=== PATIENT | male | born 1980 | race Caucasian/White ===

== ENCOUNTER 2017-06-13 15:30 | Emergency (ER) | payer BC, OTHER ==
[~2017-06-13] VITALS: Ht 177.8 cm; Wt 106.5 kg
[2017-06-13 15:32] VITALS: TEMP 36.7; Ht 177.8 cm; Wt 106.5 kg
[2017-06-13 16:16] LABS: BASO % 0.3 %; BASO ABS # 0.02 K/uL (0-0.2); EOS % 0.9 %; EOS ABS # 0.07 K/uL (0-0.5); HEMATOCRIT 40.6 % (42-52); HEMOGLOBIN 14.5 g/dL (14.0-18.0); IG# 0.03 K/uL (0.00-0.02); LYMPH % 18.6 %; LYMPH ABS # 1.45 K/uL (1.2-3.4); MEAN CORPUSCULAR HEMOGLOBIN 31.8 pg (25-34); MEAN CORPUSCULAR HGB CONC 35.7 g/dl (32-36); MEAN PLATELET VOLUME 9.7 fL (7.4-10.4); MONO % 10.3 %; NEUT % 69.5 %; NEUT ABS # 5.42 K/uL (1.4-6.5); PLATELET COUNT 167 K/uL (130-400); RED CELL DISTRIBUTION WIDTH CV 13.2 % (11.5-14.5); RED CELL DISTRIBUTION WIDTH SD 43.1 fL (36.4-46.3); WHITE BLOOD COUNT 7.79 K/uL (4.8-10.8)
[2017-06-13 16:20] VITALS: O2SAT 99
[2017-06-13 16:24] LABS: INR 1.1 (0.9-1.1); PTT PATIENT 28.9 SECONDS (21.0-31.0)
[2017-06-13 16:36] LABS: ALBUMIN 3.6 gm/dl (3.4-5.0); CALCIUM 8.3 mg/dl (8.5-10.1); CREATININE 0.9 mg/dl (0.60-1.40); POTASSIUM 3.8 mmol/L (3.5-5.1)
[2017-06-13 16:38] LABS: TOTAL PROTEIN 7.4 gm/dl (6.4-8.2)
[2017-06-13 16:43] LABS: INFLUENZA A PCR Neg for Influ A (NEG); INFLUENZA B PCR Neg for Influ B (NEG)
--- NOTE | 2017-06-13 16:48 | DIAGNOSTIC IMAGING REPORT ---
TWO VIEW CHEST CLINICAL HISTORY: Fever. FINDINGS: PA and lateral chest radiographs are obtained. No prior studies are available for comparison at the time of dictation. The cardiomediastinal silhouette is unremarkable. The lungs and pleural spaces are clear. There is no pneumothorax. The bony thorax appears intact. IMPRESSION: No active disease in the chest. Electronically signed by: Jass Pardo M.D. 06/13/2017 4:46 PM Dictated Date/Time: 06/13/2017 4:46 PM
[2017-06-13] MEDS ORDERED: CLINDAMYCIN 600 MG/54 ML D5W IV STA (17:11)
[2017-06-13] MEDS ORDERED: CLIN150C PO (17:22)
[2017-06-13] MEDS ORDERED: CLINDAMYCIN 150MG HOME PACK PO ONE (17:30)
[2017-06-13] MEDS ORDERED: CLINDAMYCIN IV 600 MG in DEXTROSE 5% 50ML 50 ML IV ONE (17:45)
--- NOTE | 2017-06-13 18:01 | EMERGENCY ROOM VISIT NOTE ---
History Report prepared by Samantha: Tate Georges Under the Supervision of: Dr. Jermaine Duran M.D. First contact with patient: 15:36 Chief Complaint: RASH Stated Complaint: FEVER AND RASH History of Present Illness The patient is a 37 year old male who presents to the Emergency Room with complaints of a constant rash that began this morning. He rates his discomfort as a 1/10 in severity. The patient states that beginning two days ago he became lightheaded and dizzy. He reports he tried to go to work, but developed the chills resulting in him going home. The patient states that when he went home he became febrile. He reports he took Ibuprofen and slept, which helped alleviate his symptoms. The patient states that night and the next day he continued to use Ibuprofen. He reports that this morning he woke up with a red rash to his right lower extremity. The patient states that the area is tender to touch. He states that he has also been experiencing some mild lower back soreness the other day which is now resolved. The patient states he took 600 mg of Ibuprofen again three hours ago. The patient denies congestion, urinary symptoms, vomiting, headache, injury to right lower extremity, a burning sensation to right leg, abdominal pain, neck pain, a history of Diabetes, and IV drug usage. Source of History: patient Onset: this morning Position: leg (right) Symptom Intensity: 1/10 Quality: other (red, tender to touch) Timing: constant Modifying Factors (Relieving): ibuprofen Associated Symptoms: + fevers, + chills, No headache, No neck pain, No vomiting, No abdominal pain, No urinary symptoms Note: Associated symptoms: dizzy, lightheaded Review of Systems See HPI for pertinent positives & negatives. A total of 10 systems reviewed and were otherwise negative. Past Medical & Surgical Medical Problems: (1) No significant past medical history Family History Diabetes mellitus Social History Smoking Status: Current Every Day Smoker Alcohol Use: occasionally Drug Use: none Marital Status: Housing Status: lives with family Occupation Status: employed Current/Historical Medications Scheduled Clindamycin Hcl (Cleocin), 300 MG PO TID Allergies Coded Allergies: Penicillins (Verified Allergy, Unknown, HAPPENED A CHILD-HIVES, 06/13/17 ) Physical Exam Vital Signs Date Time Temp Pulse Resp B/P (MAP) Pulse Ox O2 Delivery O2 Flow Rate FiO2 06/13/17 16:20 99 Room Air 06/13/17 16:20 89 20 143/76 98 Room Air 06/13/17 15:32 36.7 101 16 147/89 100 Room Air Physical Exam Constitutional: Vital signs reviewed. Eyes: Pupils are equal round reactive to light. Conjunctiva are noninjected. ENT: Pharynx is clear without erythema or exudate. Mucous membranes are moist. Neck supple without meningeal signs. Respiratory: Clear to auscultation bilaterally. Breath sounds are equal bilaterally. Cardiovascular: Regular rate and rhythm. No rubs or gallops. GI: Soft, nondistended and nontender. Bowel sounds are present. Musculoskeletal: No peripheral edema. Erythematous rash over the lateral aspect of the lower right taylor with scattered petechiae. No purpura. No midline tenderness to the thoracic or lumbar spine. Right inguinal lymphadenopathy with half-dollar sized erythematous lesion in the right inner thigh with mild tenderness. No petechiae over this lesion. Integumentary: No cyanosis. As above. Neurological: The patient is awake and alert. No focal deficits. Psychiatric: Normal affect. Medical Decision & Procedures ER Provider Diagnostic Interpretation: Radiology results as stated below per my review and the radiologist's interpretation: TWO VIEW CHEST CLINICAL HISTORY: Fever. FINDINGS: PA and lateral chest radiographs are obtained. No prior studies are available for comparison at the time of dictation. The cardiomediastinal silhouette is unremarkable. The lungs and pleural spaces are clear. There is no pneumothorax. The bony thorax appears intact. IMPRESSION: No active disease in the chest. Electronically signed by: Jass Pardo M.D. 06/13/2017 4:46 PM Dictated Date/Time: 06/13/2017 4:46 PM Laboratory Results 06/13/17 16:05 Red Blood Count 4.56, Mean Corpuscular Volume 89.0, Mean Corpuscular Hemoglobin 31.8, Mean Corpuscular Hemoglobin Concent 35.7, Mean Platelet Volume 9.7, Neutrophils (%) (Auto) 69.5, Lymphocytes (%) (Auto) 18.6, Monocytes (%) (Auto) 10.3, Eosinophils (%) (Auto) 0.9, Basophils (%) (Auto) 0.3, Neutrophils # (Auto ) 5.42, Lymphocytes # (Auto) 1.45, Monocytes # (Auto) 0.80, Eosinophils # (Auto ) 0.07, Basophils # (Auto) 0.02 06/13/17 16:05 Test 06/13/17 15:55 06/13/17 16:05 06/13/17 16:08 Influenza Type A (RT-PCR) Neg for Influ A (NEG) Influenza Type B (RT-PCR) Neg for Influ B (NEG) White Blood Count 7.79 K/uL (4.8-10.8) Red Blood Count 4.56 M/uL (4.7-6.1) Hemoglobin 14.5 g/dL (14.0-18.0) Hematocrit 40.6 % (42-52) Mean Corpuscular Volume 89.0 fL (80-100) Mean Corpuscular Hemoglobin 31.8 pg (25-34) Mean Corpuscular Hemoglobin Concent 35.7 g/dl (32-36) Platelet Count 167 K/uL (130-400) Mean Platelet Volume 9.7 fL (7.4-10.4) Neutrophils (%) (Auto) 69.5 % Lymphocytes (%) (Auto) 18.6 % Monocytes (%) (Auto) 10.3 % Eosinophils (%) (Auto) 0.9 % Basophils (%) (Auto) 0.3 % Neutrophils # (Auto) 5.42 K/uL (1.4-6.5) Lymphocytes # (Auto) 1.45 K/uL (1.2-3.4) Monocytes # (Auto) 0.80 K/uL (0.11-0.59) Eosinophils # (Auto) 0.07 K/uL (0-0.5) Basophils # (Auto) 0.02 K/uL (0-0.2) RDW Standard Deviation 43.1 fL (36.4-46.3) RDW Coefficient of Variation 13.2 % (11.5-14.5) Immature Granulocyte % (Auto) 0.4 % Immature Granulocyte # (Auto) 0.03 K/uL (0.00-0.02) Prothrombin Time 12.0 SECONDS (9.0-12.0) Prothromb Time International Ratio 1.1 (0.9-1.1) Activated Partial Thromboplast Time 28.9 SECONDS (21.0-31.0) Partial Thromboplastin Ratio 1.1 Anion Gap 6.0 mmol/L (3-11) Est Creatinine Clear Calc Drug Dose 140.0 ml/min Estimated GFR () 127.8 Estimated GFR (Non- 110.3 BUN/Creatinine Ratio 13.0 (10-20) Calcium Level 8.3 mg/dl (8.5-10.1) Total Bilirubin 0.5 mg/dl (0.2-1) Aspartate Amino Transf (AST/SGOT) 14 U/L (15-37) Alanine Aminotransferase (ALT/SGPT) 45 U/L (12-78) Alkaline Phosphatase 48 U/L (45-117) Total Protein 7.4 gm/dl (6.4-8.2) Albumin 3.6 gm/dl (3.4-5.0) Globulin 3.7 gm/dl (2.5-4.0) Albumin/Globulin Ratio 1.0 (0.9-2) Lyme Disease IgG Antibody NEG (NEG) Lyme Disease IgM Antibody NEG (NEG) Monoscreen NEG (NEG) Bedside Lactic Acid Venous 1.05 mmol/L (0.90-1.70) Date/Time Source Procedure Growth Status 06/13/17 15:55 Nasal MRSA DNA Surveillance Screen - Final Specimen Negative for MRSA by DNA Probe Complete Laboratory results as reviewed by me. Medications Administered Medications (Trade) Dose Ordered Sig/Ness Route Start Time Stop Time Status Last Admin Dose Admin Clindamycin HCl (Cleocin 150MG Home Pack) 1 homepack UD ONCE PO 06/13/17 17:30 06/13/17 17:32 DC 06/13/17 17:33 1 HOMEPACK Clindamycin Phosphate 600 mg/ Dextrose 54 ml @ 108 mls/hr TODAY@1745 ONCE IV 06/13/17 17:45 06/13/17 18:14 06/13/17 17:36 108 MLS/HR ED Course 1538: The patient was evaluated in room B09. A complete history and physical exam was performed. 1707: I reevaluated the patient and discussed the results. I discussed the treatment plan, which he agrees to. The patient is ready for discharge. 1711: Ordered Clindamycin Phosphate 600 mg IV. 1730: Ordered Clindamycin HCl 1 homepack PO. Medical Decision This is a 37-year-old male presents with fever and rash. Differential diagnosis includes cellulitis, lymphangitis, sepsis, influenza, infectious mononucleosis, Lyme disease. I did perform a limited focused review of portions of the patient's old chart on the electronic medical record. The patient has had no recent pertinent visits to this hospital. I did evaluate the patient as noted above. The patient is well-appearing. He has no fever here. He does have a rash to his right lower leg with a slight rash near his upper thigh and some inguinal lymphadenopathy. IV access was established. I did order and personally review the patient's chest x-ray as described above. I did order and review the patient's blood work as noted in the electronic medical record. His white blood cell count is not elevated. Lactic acid is not elevated. Lyme testing and Monospot testing are negative. PCR influenza testing is negative. I did reassess the patient. I did discuss the test results with the patient and his . He states he feels well at this time. He does not have any signs consistent with bacteremia or sepsis. I will treat his cellulitis and he was advised to follow-up with his primary care physician in 2 days. I did treat him with IV clindamycin and he was given a prescription for clindamycin. He was given precautions regarding this antibiotic including the potential for C. difficile infection. I did review return instructions with the patient and his . Medication Reconcilliation Current Medication List: was personally reviewed by me Blood Pressure Screening Patient's blood pressure: Elevated blood pressure Blood pressure disposition: Referred to PCP Impression Primary Impression: Left leg cellulitis Additional Impression: Lymphadenopathy, inguinal Scribe Attestation The scribe's documentation has been prepared under my direct and personally reviewed by me in its entirety. I confirm that the note above accurately reflects all work, treatment, procedures, and medical decision making performed by me. Departure Information Dispostion Home / Self-Care Prescriptions Clindamycin Hcl (CLEOCIN) 150 Mg Cap 300 MG PO TID for 7 Days, #42 CAP Prov: Jermaine Duran M.D. 06/13/17 Referrals No Doctor, Assigned (PCP) Forms HOME CARE DOCUMENTATION FORM, IMPORTANT VISIT INFORMATION, WORK / SCHOOL INSTRUCTIONS Patient Instructions Cellulitis Dc, My [facility] Additional Instructions You have been examined and treated today on an emergency basis only. This is not a substitute for, or an effort to provide, complete comprehensive medical care. It is impossible to recognize and treat all injuries or illnesses in a single emergency department visit. It is therefore important that you follow up closely with your physician within 48 hours. Call as soon as possible for an appointment. Return for worsening symptoms or if you develop confusion, worsening of the rash, vomiting, or any other concerning symptoms. Problem Qualifiers
[2017-06-13 18:04] VITALS: BP 135/80; PULSE 78; O2SAT 98
== END 2017-06-13 18:07 | disposition home or self-care (01) ==
LOC: C.EDB 15:32
DX: L03.116 Cellulitis of left lower limb (principal); R59.0 Localized enlarged lymph nodes; R42 Dizziness and giddiness; F17.200 Nicotine dependence, unspecified, uncomplicated; Z88.0 Allergy status to penicillin